=== PATIENT | female | born 1970 | race Caucasian/White ===

== ENCOUNTER 2019-04-18 09:53 | Day surgery (SDC) | payer MEDICAID ==
[~2019-04-18 09:53] MED LIST: ACETAMINOPHEN 1,000 MG/100 ML BTL IVPB ONE
[2019-04-18] MEDS ORDERED: LIDOCAINE 2% MDV (20MG/ML) 20ML VIAL IV ONE (09:54)
[2019-04-18] MEDS ORDERED: PROPOFOL 10 MG/ML VIAL IV ONE (09:54)
[2019-04-18] MEDS ORDERED: RINGERS SOLUTION,LACTATED 1,000 ML IV ONE (10:23)
[2019-04-18] MEDS ORDERED: LIDOCAINE 1% MPF 100MG/10ML STERILE-PAK AMPULE SQ ONE (11:31)
--- NOTE | 2019-04-18 13:11 | Operative Note ---
DATE OF SURGERY: 04/18/2019 SURGEON: Jared Leahy D.O. REFERRING PHYSICIAN: Vasile Roldan D.O. PREOPERATIVE DIAGNOSIS: TRIGGER FINGER LEFT THUMB. POSTOPERATIVE DIAGNOSIS: TRIGGER FINGER LEFT THUMB. OPERATION: TENOTOMY A1 JESSIKA LEFT THUMB. DESCRIPTION: This 48-year-old female was taken to the Operative Room and placed in a supine position on the operating room table. Assisted local anesthesia was administered and the left upper extremity was elevated, prepped with Hibiclens and draped in the usual fashion. 1% Xylocaine plain was used as a local anesthetic. We then made an incision across the flexor crease of the MCP joint and dissection was carried down through the skin and subcutaneous tissue. Hemostasis was obtained with electrocautery. The proximal edge of the A1 jessika was easily identified, it was then split from its proximal to its distal margin under direct vision and the tendon was inspected and found to be intact. There was nodularity within the sublimis tendon, however, it was intact. The wound was then irrigated and the wound closed with interrupted 6-0 nylon suture. Sterile dressing were applied and the patient was taken to the Recovery Room in satisfactory condition. JOB NUMBER: [id number] MTDD
== END 2019-04-18 12:09 | disposition home or self-care (01) ==
LOC: SUR 09:53
PROVIDERS: ATTEND Orthopaedic Surgery
DX: M65.312 Trigger thumb, left thumb (principal); F90.9 Attention-deficit hyperactivity disorder, unspecified type; F17.290 Nicotine dependence, other tobacco product, uncomplicated
CPT/HCPCS: J3490; J7120